=== PATIENT | female | born 1945 | race Caucasian/White ===

== ENCOUNTER 2017-09-24 09:31 | Day surgery (SDC) | payer MEDICARE, OTHER ==
[2017-09-24] MEDS ORDERED: Midazolam 2 MG/2 ML VIAL ONE (11:19)
[2017-09-24] MEDS ORDERED: Lidocaine Hydrochloride 5 ML INJ ONE (11:19)
[2017-09-24] MEDS ORDERED: Propofol 10 mg/ml Inj (20 ML) ONE ×2 (11:19→11:51)
[2017-09-24 12:34] VITALS: TEMP 97.8; O2SAT 100
[2017-09-24 13:57] VITALS: PULSE 62
[2017-09-24 14:00] VITALS: BP 143/77; RESP 19
== END 2017-09-24 13:15 | disposition home or self-care (01) ==
LOC: C.ENDO 09:31
PROVIDERS: ATTEND Internal Medicine Gastroenterology
DX: Z12.11 Encounter for screening for malignant neoplasm of colon (principal); K20.9 Esophagitis, unspecified; K44.9 Diaphragmatic hernia without obstruction or gangrene; K29.70 Gastritis, unspecified, without bleeding; K29.80 Duodenitis without bleeding; Z86.010 Personal history of colon polyps; K63.5 Polyp of colon; K64.8 Other hemorrhoids; Q43.8 Other specified congenital malformations of intestine; I10 Essential (primary) hypertension; E11.9 Type 2 diabetes mellitus without complications; Z79.84 Long term (current) use of oral hypoglycemic drugs; Z79.899 Other long term (current) drug therapy; K59.09 Other constipation
CPT/HCPCS: 43239; 45380; 45385; 82948; 88305; J2250; J2704

== ENCOUNTER 2018-12-06 10:07 | Outpatient (CLI) | payer MEDICARE | END 2018-12-06 10:08 | disposition home or self-care (01) | LOC: C.RADIC 10:07 | DX: M54.2 Cervicalgia (principal); I10 Essential (primary) hypertension ==